=== PATIENT | female | born 1985 | race Caucasian/White ===

== ENCOUNTER 2018-10-27 10:22 | Day surgery (SDC) | payer BC ==
[2018-10-27] MEDS ORDERED: CEFAZOLIN 2 GM/50 ML (PMX) 50 ML IVPB (12:30)
[2018-10-27] MEDS ORDERED: SOD CHLORIDE 0.9% 1,000 ML IV (12:30)
[2018-10-27] MEDS ORDERED: BUPIVACAINE 0.5%/EPI (SDV) 30 ML INJ (12:44)
[2018-10-27] MEDS ORDERED: MIDAZOLAM 1 MG/ML 2 ML INJ (13:07)
[2018-10-27] MEDS ORDERED: FENTAnyl 50 MCG/ML VIAL (13:07)
[2018-10-27] MEDS: BUPIVACAINE 0.25% (MPF) 30 ML INJ (13:28)
[2018-10-27] MEDS: LIDOCAINE 1%/EPI 30 ML INJ (13:29)
[2018-10-27] MEDS ORDERED: CEFAZOLIN 1 GM INJ (13:42)
[2018-10-27] MEDS ORDERED: DIPHENHYDRAMINE 50 MG INJ IV (14:00)
[2018-10-27] MEDS ORDERED: IBUPROFEN 600 MG TAB PO (14:00)
[2018-10-27] MEDS ORDERED: ONDANSETRON 4 MG INJ IV ×2 (14:00)
[2018-10-27] MEDS ORDERED: KETOROLAC 30 MG INJ IV (14:00)
[2018-10-27] MEDS ORDERED: FENTAnyl 50 MCG/ML VIAL IV (14:00)
== END 2018-10-27 14:50 | disposition home or self-care (01) ==
LOC: SDS 10:22
DX: L72.0 Epidermal cyst (principal)
CPT/HCPCS: 21932; 84703; 88307